=== PATIENT | male | born 1960 | race African-American/Black ===

== ENCOUNTER 2017-09-27 16:22 | Emergency (ER) | payer MEDICAID ==
[~2017-09-27] VITALS: Ht 172.7 cm; Wt 75.0 kg
[2017-09-27] MEDS ORDERED: TETANUS, DIPHTHERIA, PERTUSSIS VAC/PF 0.5ML (>7YR OLD) IM ONE (23:45)
[2017-09-27] MEDS ORDERED: BACITRACIN ZINC OINT UDPKT TOP ONE (23:45)
[2017-09-28] MEDS ORDERED: IBUPROFEN 600MG TABLET PO STA (02:23)
[2017-09-28 02:59] VITALS: BP 160/78
== END 2017-09-28 03:20 | disposition home or self-care (01) ==
LOC: ER 18:25
DX: S01.112A Laceration without foreign body of left eyelid and periocular area, initial encounter (principal); W22.8XXA Striking against or struck by other objects, initial encounter; Y93.89 Activity, other specified; Y92.098 Other place in other non-institutional residence as the place of occurrence of the external cause; R03.0 Elevated blood-pressure reading, without diagnosis of hypertension; J32.9 Chronic sinusitis, unspecified; F12.10 Cannabis abuse, uncomplicated; Z23 Encounter for immunization; Z87.891 Personal history of nicotine dependence
CPT/HCPCS: 70450; 90471; 90715; 99284; X7700

== ENCOUNTER 2021-10-10 10:29 | Emergency (ER) | payer MEDICAID ==
[~2021-10-10] VITALS: Ht 175.3 cm; Wt 82.0 kg
[2021-10-10] MEDS ORDERED: KETOROLAC 30MG/ML VIAL IM ONE (11:00)
[2021-10-10 11:42] VITALS: BP 129/72
[2021-10-10 12:14] LABS: CLARITY URINE CLEAR (CLEAR); COLOR URINE YELLOW (YELLOW); KETONES URINE NEGATIVE (NEGATIVE); LEUKOCYTE ESTERASE URINE TRACE (NEGATIVE); NITRITE URINE NEGATIVE (NEGATIVE); OCCULT BLOOD URINE NEGATIVE (NEGATIVE); PH URINE 8.5 (4.5-8.0); PROTEIN URINE NEGATIVE (NEGATIVE); SPECIFIC GRAVITY URINE 1.017 (1.005-1.030); UROBILINOGEN URINE 0.2 E.U./dL (0.2-1.0)
[2021-10-10] MEDS ORDERED: IBUP-2029 MT (12:24)
[2021-10-12 04:09] LABS: NEISSERIA GONORRHOEAE NAA Negative (Negative)
== END 2021-10-10 12:49 | disposition home or self-care (01) ==
LOC: ER 10:29
DX: N50.812 Left testicular pain (principal); R10.30 Lower abdominal pain, unspecified
CPT/HCPCS: 76870; 81003; 87491; 87591; 93976; 96372; 99284; J1885

== ENCOUNTER 2022-08-25 08:42 | Emergency (ER) | payer MEDICAID, OTHER ==
[~2022-08-25] VITALS: Ht 172.7 cm; Wt 75.0 kg
[~2022-08-25 08:42] MED LIST: IBUP-2029 MT
[2022-08-25 09:25] LABS: BASOPHILS % 0.4 % (0.0-2.0); EOSINOPHILS % 1.2 % (0.0-5.0); HEMATOCRIT. 42.3 % (42.0-52.0); HEMOGLOBIN. 14.2 g/dL (14.0-18.0); LYMPHOCYTES % 25.6 % (20.0-50.0); MEAN CORPUSCULAR VOLUME 89.4 fL (80.0-94.0); MONOCYTES % 8.2 % (2.0-8.0); NEUTROPHILS % 64.6 % (40.0-76.0); PLATELET 274 x1000/uL (130-400); RED BLOOD CELL COUNT 4.73 mill/uL (4.7-6.1); RED CELL DISTRIBUTION WIDTH 13.5 % (11.6-14.6)
[2022-08-25 09:29] LABS: CHLORIDE 107 mEq/L (98-107)
[2022-08-25] MEDS ORDERED: MORPHINE SULFATE 4 MG/ML CPJ (NOT FOR IM USE) IV ONE (10:00)
[2022-08-25] MEDS ORDERED: HYDRALAZINE 20MG/ML VIAL IV ONE (11:15)
[2022-08-25 13:59] VITALS: BP 136/76
== END 2022-08-25 14:24 | disposition short-term general hospital (02) ==
LOC: ER 08:54
DX: R07.89 Other chest pain (principal); F10.229 Alcohol dependence with intoxication, unspecified; Y90.0 Blood alcohol level of less than 20 mg/100 ml; Z20.822 Contact with and (suspected) exposure to COVID-19
CPT/HCPCS: 36415; 71045; 80053; 83880; 84484; 85025; 87426; 93005; 96374; 96375; 99285; C9803; J0360; J2270; Z7610

== ENCOUNTER 2023-05-07 16:30 | Emergency (ER) | payer OTHER ==
[~2023-05-07] VITALS: Ht 177.8 cm; Wt 82.0 kg
[2023-05-07 16:54] VITALS: BP 149/74; PULSE 55; RESP 18; TEMP 98.5; O2SAT 100
[2023-05-07 17:43] LABS: BASOPHILS % 0.5 % (0.0-2.0); HEMATOCRIT. 41.4 % (42.0-52.0); HEMOGLOBIN. 13.8 g/dL (14.0-18.0); LYMPHOCYTES % 23.7 % (20.0-50.0); MEAN CORPUSCULAR HGB CONC 33.2 g/dL (31.0-37.0); MEAN CORPUSCULAR VOLUME 90.2 fL (80.0-94.0); MONOCYTES % 6.8 % (2.0-8.0); PLATELET 286 x1000/uL (130-400); RED BLOOD CELL COUNT 4.59 mill/uL (4.7-6.1); RED CELL DISTRIBUTION WIDTH 14.2 % (11.6-14.6); WHITE BLOOD COUNT 10.1 x1000/uL (4.5-11.0)
[2023-05-07 18:04] LABS: ALANINE AMINOTRANSFERASE 17 IU/L (10-49); ALBUMIN 4.4 g/dL (3.2-4.8); ASPARTATE AMINOTRANSFERASE 17 IU/L (<34); BILIRUBIN TOTAL 0.6 mg/dL (0.1-1.0); CALCIUM 9.3 mg/dL (8.7-10.4); CARBON DIOXIDE 30 mEq/L (21-32); CHLORIDE 104 mEq/L (98-107); CREATININE 0.7 mg/dL (0.6-1.3); GLUCOSE 104 mg/dL (70-105); POTASSIUM 3.9 mEq/L (3.5-5.1); PROTEIN TOTAL 7.5 g/dL (6.0-8.3); SODIUM 140 mEq/L (136-145); TROPONIN I HIGH SENSITIVITY 8 ng/L (3.0-53); UREA NITROGEN BLOOD 6 mg/dL (9-23)
[2023-05-07] MEDS ORDERED: ONDANSETRON 4MG ODT PO ONE (19:15)
[2023-05-07] MEDS ORDERED: FAMOTIDINE 20MG TABLET PO ONE (19:15)
[2023-05-07] MEDS ORDERED: ONDA4TAB11 PO (20:46)
[2023-05-07] MEDS ORDERED: OMEP20TA23 MT (20:46)
[2023-05-07 21:18] LABS: TROPONIN I HIGH SENSITIVITY 8 ng/L (3.0-53)
== END 2023-05-07 21:52 | disposition home or self-care (01) ==
LOC: ER 16:30
DX: R10.13 Epigastric pain (principal); R07.89 Other chest pain; K86.1 Other chronic pancreatitis
CPT/HCPCS: 99284; 74176; 80053; 83690; 85025; 84484; 36415; 93005; Q0162